=== PATIENT | male | born 1995 | race Caucasian/White ===

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

== ENCOUNTER → 2017-01-23 | Outpatient (CLI) | payer OTHER | LOC: M SMT 08:09 | PROVIDERS: ATTEND Urology | DX: E29.1 Testicular hypofunction (principal) | CPT/HCPCS: 36415; 84402; 84403; G0463 ==

== ENCOUNTER → 2017-03-30 | Outpatient (REF) | payer OTHER ==
[2017-03-30 11:23] LABS: #IMMOTILE SPERM COUNTED 5.5; #MOTILE SPERM COUNTED 3; % MOTILITY 35 (> 25%); TOTAL # SPERM COUNTED 8.5 M/ml
== END ==
LOC: M SMT 09:55
PROVIDERS: ATTEND Urology
DX: E29.1 Testicular hypofunction (principal)

== ENCOUNTER → 2017-04-05 | Outpatient (CLI) | payer OTHER ==
[2017-04-05 19:57] LABS: LUTEINIZING HORMONE 3.9 mIU/mL (1.5-9.3)
[2017-04-05 20:00] LABS: ESTRADIOL 43.9 PG/ML (<39.8)
== END ==
LOC: M SMT 14:36
PROVIDERS: ATTEND Urology
DX: E29.1 Testicular hypofunction (principal)
CPT/HCPCS: 36415; 82670; 83001; 83002; 84403; G0463